=== PATIENT | male | born 1955 ===

== ENCOUNTER → 2025-05-13 | Outpatient (CLI) | payer OTHER | END | disposition home or self-care (01) | LOC: TELEHEALTH 08:08 | PROVIDERS: ATTEND Neurological Surgery | DX: M48.56XA Collapsed vertebra, not elsewhere classified, lumbar region, initial encounter for fracture (principal); M48.061 Spinal stenosis, lumbar region without neurogenic claudication; C61 Malignant neoplasm of prostate; C79.9 Secondary malignant neoplasm of unspecified site ==